=== PATIENT | female | born 1950 | race Caucasian/White ===

== ENCOUNTER → 2016-10-10 | Outpatient (CLI) | payer OTHER ==
[~2016-10-10] MED LIST: ASPIRIN81 M1 PO; CAPOTEN25 MG PO; CAPTOPRIL25 MG PO; CARAFATE1 GM PO; CATAPRES0.2 M1 PO; CIPRO500 MG PO; CLONIDINE HCL0.1 MG PO; COLACE100 MG PO; COREG12.5 M1 PO; COREG25 MG PO; CYMBALTA30 MG PO; CYMBALTA60 MG PO; DOXYCYCLINE100 M3 PO; DULCOLAX STOOL100 MG PO; FAMOTIDINE20 MG PO; FLEXERIL10 MG PO; GLUCOPHAGE1000 MG PO; GLUCOPHAGE500 MG PO; GLUCOTROL5 MG PO; HUMALOG100 U/ML SC; HUMULIN 70/30 703 M1 SC; HYDR25T PO; HYDRALAZINE HYD50 MG PO; JANUVIA100 MG PO; LAMICTAL100 MG PO; LAMICTAL200 MG PO; LANTUS100 U/ML SC; LIPITOR40 MG PO; LOPID600 M1 PO; Lovenox40 MG/0.4 SC; MECLIZINE HCL25 M2 PO; METFORMIN1000 MG PO; MICARDIS80 MG PO; MORPHINE SULF2 MG/M1 IV; MULTIPLE VITAMI1 CTB PO; NAPROSYN375 MG PO; NEXIUM40 MG PO; NORCO 10-325 T1 EACH PO; NORCO 325 MG-51 TAB PO; NORCO 325 MG-7.1 TAB PO; NORVASC10 MG PO; NOVOLIN 701 UNIT/0.0 PO; NOVOLOG 70/30 M10 ML SC; OXCARBAZEPINE150 MG PO; PENTOXIFYL XR400 MG PO; PEPCID AC10 MG PO; PEPCID20 MG PO; PERCOCET 325 MG1 TA2 PO; PRAVACHOL80 M1 PO; TRENTAL; TRILEPTAL300 MG PO; TYLENOL W/CODEI1 TA2 PO; VANCOCIN1000 MG/25 IV; VANCOMYCIN1 GM/250 M IV; VANCOMYCIN1.25 GM/25 IV; VICODIN 5/500 505 MG PO; VITAMIN D32000 I1 PO; VITAMIN D5000 I3 PO; Vicodin 5/500 505 MG PO; ZETIA10 MG PO; ZOLOFT100 MG PO; ZOSYN 3.373.375 GM/5 IV; Zestril,Prinivi40 MG PO
[2016-10-10 14:11] LABS: BASO # 0.1 10*3/uL (0.0-0.1); BASO % 0.6 % (0.0-1.0); EOS # 0.2 10*3/uL (0.0-0.4); EOS % 1.8 % (1.0-4.0); HEMATOCRIT 37.4 % (37.0-47.0); IG # 0.1 10*3/uL (0.0-0.1); LYMPH # 1.9 10*3/uL (1.3-4.4); LYMPH % 19.9 % (27.0-41.0); MEAN CELL VOLUME 90.8 fl (81.0-99.0); MEAN CORPUSCULAR HGB 29.1 pg (27.0-31.0); MEAN CORPUSCULAR HGB CONC 32.1 g/dl (33.0-37.0); MEAN PLATELET VOLUME 10.3 fl (9.6-12.3); MONO # 0.8 10*3/uL (0.1-1.0); MONO % 8.2 % (3.0-9.0); NEUT # 6.6 10*3/uL (2.3-7.9); PLATELET COUNT AUTOMATED 273 10*3/uL (130-400); RED BLOOD COUNT 4.12 10*6/uL (4.10-5.10); RED CELL DISTRI WIDTH 13.8 % (0-14.5); WHITE BLOOD COUNT 9.6 10*3/uL (4.8-10.8)
[2016-10-10 14:33] LABS: ALBUMIN 3.2 gm/dl (3.1-4.5); BILIRUBIN, TOTAL 0.3 mg/dl (0.2-1.0); C-REACTIVE PROTEIN 4.79 MG/DL (0-0.3); POTASSIUM 4.7 mmol/L (3.5-5.1); TOTAL PROTEIN 7.2 gm/dL (6.4-8.2)
== END | disposition home or self-care (01) ==
LOC: LAB 13:21
PROVIDERS: Podiatrist
DX: L08.9 Local infection of the skin and subcutaneous tissue, unspecified (principal)

== ENCOUNTER → 2017-06-21 | Outpatient (CLI) | payer OTHER ==
[2017-06-21 09:11] LABS: HEMATOCRIT 39.1 % (37.0-47.0); HEMOGLOBIN 12.5 g/dl (12.0-16.0); MEAN CELL VOLUME 87.7 fl (81.0-99.0); RED BLOOD COUNT 4.46 10*6/uL (4.10-5.10); RED CELL DISTRI WIDTH 14.2 % (0-14.5); WHITE BLOOD COUNT 7.5 10*3/uL (4.8-10.8)
[2017-06-21 09:21] LABS: ALBUMIN 3.4 gm/dl (3.1-4.5); CREATININE 1.37 mg/dL (0.55-1.02); POTASSIUM 4.8 mmol/L (3.5-5.1); TOTAL PROTEIN 7.9 gm/dL (6.4-8.2)
[2017-06-21 09:28] LABS: THYROID STIM HORMONE (HS) 0.662 uIU/ml (0.358-4.75)
== END | disposition home or self-care (01) ==
LOC: US 06-19 07:30 → LAB 08:16 → US 08:30
DX: E11.9 Type 2 diabetes mellitus without complications (principal); E55.9 Vitamin D deficiency, unspecified; I10 Essential (primary) hypertension

== ENCOUNTER → 2017-10-31 | Outpatient (CLI) | payer OTHER | END | disposition home or self-care (01) | LOC: MRI 10:56 | DX: G50.0 Trigeminal neuralgia (principal) ==

== ENCOUNTER → 2018-02-27 | Outpatient (CLI) | payer OTHER | END | disposition home or self-care (01) | LOC: RESCLI 04:37 | DX: I11.0 Hypertensive heart disease with heart failure (principal); I50.9 Heart failure, unspecified; E11.59 Type 2 diabetes mellitus with other circulatory complications; I73.9 Peripheral vascular disease, unspecified; K21.9 Gastro-esophageal reflux disease without esophagitis; E78.5 Hyperlipidemia, unspecified; F41.9 Anxiety disorder, unspecified; E55.9 Vitamin D deficiency, unspecified; F33.9 Major depressive disorder, recurrent, unspecified; G50.0 Trigeminal neuralgia; G40.909 Epilepsy, unspecified, not intractable, without status epilepticus; R05 Cough; R42 Dizziness and giddiness; Z79.4 Long term (current) use of insulin; Z90.49 Acquired absence of other specified parts of digestive tract; Z88.1 Allergy status to other antibiotic agents ==

== ENCOUNTER → 2018-05-24 | Outpatient (CLI) | payer OTHER | END | disposition home or self-care (01) | LOC: RESCLI 02:26 | DX: E11.59 Type 2 diabetes mellitus with other circulatory complications (principal); G43.009 Migraine without aura, not intractable, without status migrainosus; K21.9 Gastro-esophageal reflux disease without esophagitis; E78.00 Pure hypercholesterolemia, unspecified; E55.9 Vitamin D deficiency, unspecified; J44.9 Chronic obstructive pulmonary disease, unspecified; E66.01 Morbid (severe) obesity due to excess calories; G40.909 Epilepsy, unspecified, not intractable, without status epilepticus; G50.0 Trigeminal neuralgia; F41.9 Anxiety disorder, unspecified; I73.9 Peripheral vascular disease, unspecified; Z90.49 Acquired absence of other specified parts of digestive tract; Z79.899 Other long term (current) drug therapy ==

== ENCOUNTER → 2018-09-14 | Outpatient (CLI) | payer OTHER | END | disposition home or self-care (01) | LOC: RESCLI 13:36 | DX: Z76.0 Encounter for issue of repeat prescription (principal); E11.9 Type 2 diabetes mellitus without complications; I11.0 Hypertensive heart disease with heart failure; I50.9 Heart failure, unspecified; E78.5 Hyperlipidemia, unspecified; K21.9 Gastro-esophageal reflux disease without esophagitis; E66.9 Obesity, unspecified; Z90.49 Acquired absence of other specified parts of digestive tract; Z88.8 Allergy status to other drugs, medicaments and biological substances; Z79.82 Long term (current) use of aspirin; Z79.899 Other long term (current) drug therapy; Z79.84 Long term (current) use of oral hypoglycemic drugs ==

== ENCOUNTER → 2018-11-27 | Outpatient (CLI) | payer OTHER | END | disposition home or self-care (01) | LOC: RESCLI 04:27 | DX: Z12.11 Encounter for screening for malignant neoplasm of colon (principal); I11.0 Hypertensive heart disease with heart failure; I50.9 Heart failure, unspecified; B37.2 Candidiasis of skin and nail; R42 Dizziness and giddiness; G43.909 Migraine, unspecified, not intractable, without status migrainosus; F32.9 Major depressive disorder, single episode, unspecified; G40.909 Epilepsy, unspecified, not intractable, without status epilepticus; G50.0 Trigeminal neuralgia; E11.622 Type 2 diabetes mellitus with other skin ulcer; E11.51 Type 2 diabetes mellitus with diabetic peripheral angiopathy without gangrene; E55.9 Vitamin D deficiency, unspecified; E78.5 Hyperlipidemia, unspecified; K21.9 Gastro-esophageal reflux disease without esophagitis; E66.01 Morbid (severe) obesity due to excess calories; Z79.4 Long term (current) use of insulin; Z79.899 Other long term (current) drug therapy ==

== ENCOUNTER → 2018-12-26 | Outpatient (CLI) | payer OTHER | END | disposition home or self-care (01) | LOC: RESCLI 01:52 | DX: Z12.11 Encounter for screening for malignant neoplasm of colon (principal); I12.9 Hypertensive chronic kidney disease with stage 1 through stage 4 chronic kidney disease, or unspecified chronic kidney disease; E11.22 Type 2 diabetes mellitus with diabetic chronic kidney disease; E11.622 Type 2 diabetes mellitus with other skin ulcer; E11.51 Type 2 diabetes mellitus with diabetic peripheral angiopathy without gangrene; N18.3 Chronic kidney disease, stage 3 (moderate); B37.2 Candidiasis of skin and nail; R42 Dizziness and giddiness; G43.909 Migraine, unspecified, not intractable, without status migrainosus; F32.9 Major depressive disorder, single episode, unspecified; G40.909 Epilepsy, unspecified, not intractable, without status epilepticus; G50.0 Trigeminal neuralgia; E55.9 Vitamin D deficiency, unspecified; E78.5 Hyperlipidemia, unspecified; K21.9 Gastro-esophageal reflux disease without esophagitis; J44.9 Chronic obstructive pulmonary disease, unspecified; E66.01 Morbid (severe) obesity due to excess calories; Z79.4 Long term (current) use of insulin; Z79.899 Other long term (current) drug therapy; Z79.82 Long term (current) use of aspirin; Z90.49 Acquired absence of other specified parts of digestive tract; Z88.8 Allergy status to other drugs, medicaments and biological substances; Z91.048 Other nonmedicinal substance allergy status ==

== ENCOUNTER → 2019-02-06 | Outpatient (CLI) | payer OTHER ==
[2019-02-06 11:04] LABS: BASO # 0.1 10*3/uL (0.0-0.1); BASO % 0.8 % (0.0-1.0); EOS # 0.5 10*3/uL (0.0-0.4); EOS % 5.9 % (1.0-4.0); HEMATOCRIT 37.6 % (37.0-47.0); HEMOGLOBIN 12.3 g/dl (12.0-16.0); LYMPH % 26.7 % (27.0-41.0); MEAN CELL VOLUME 89.3 fl (81.0-99.0); MEAN CORPUSCULAR HGB 29.2 pg (27.0-31.0); MEAN CORPUSCULAR HGB CONC 32.7 g/dl (33.0-37.0); MEAN PLATELET VOLUME 9.6 fl (9.6-12.3); MONO # 0.5 10*3/uL (0.1-1.0); MONO % 6.4 % (3.0-9.0); NEUT # 4.5 10*3/uL (2.3-7.9); NEUT % 59.3 % (47.0-73.0); PLATELET COUNT AUTOMATED 255 10*3/uL (130-400); RED BLOOD COUNT 4.21 10*6/uL (4.10-5.10); RED CELL DISTRI WIDTH 14.1 % (0-14.5); WHITE BLOOD COUNT 7.6 10*3/uL (4.8-10.8)
[2019-02-06 11:34] LABS: CREATININE 1.58 mg/dL (0.55-1.02)
[2019-02-06 11:43] LABS: TOTAL PROTEIN 7.8 gm/dL (6.4-8.2)
== END | disposition home or self-care (01) ==
LOC: LAB 10:28
PROVIDERS: Psychiatry & Neurology Neurology
DX: G50.0 Trigeminal neuralgia (principal); Z79.899 Other long term (current) drug therapy

== ENCOUNTER → 2019-05-31 | Outpatient (CLI) | payer OTHER | END | disposition home or self-care (01) | LOC: CARD 09:30 | DX: R06.02 Shortness of breath (principal) ==

== ENCOUNTER → 2019-06-10 | Outpatient (CLI) | payer OTHER ==
--- NOTE | 2019-06-10 10:49 | NUR ---
INFORMED CONSNET SIGNED FOR LEXISCAN STRESS TEST WITH DR. GALICIA. RESTING EKG NSR, HR 79, BP 144/78. PULSE OX 96% AND LUNGS CLEAR. COMPLETED ONE MINUTE OF LEXISCAN PROTOCOL RECEIVING LEXISCAN 0.4MG OVER 10 SECONDS. NO ARRHYTHMIAS OR ST CHANGES NOTED. PT C/O WEIRD FEELING. LAST RECOVERY HR 87, BP 148/70. WAITING NUCLEAR SCANNING IN STABLE CONDITION.
== END | disposition home or self-care (01) ==
LOC: CARD 01:06
DX: R06.02 Shortness of breath (principal); R53.81 Other malaise

== ENCOUNTER → 2019-08-02 | Outpatient (CLI) | payer OTHER ==
[2019-08-02 14:50] LABS: CREATININE 1.51 mg/dL (0.55-1.02); POTASSIUM 4.8 mmol/L (3.5-5.1)
== END | disposition home or self-care (01) ==
LOC: LAB 13:10
PROVIDERS: Internal Medicine Cardiovascular Disease
DX: I13.0 Hypertensive heart and chronic kidney disease with heart failure and stage 1 through stage 4 chronic kidney disease, or unspecified chronic kidney disease (principal); N18.3 Chronic kidney disease, stage 3 (moderate); I50.33 Acute on chronic diastolic (congestive) heart failure

== ENCOUNTER → 2019-08-19 | Outpatient (CLI) | payer OTHER | END | disposition home or self-care (01) | LOC: CARD 11:22 | DX: R06.02 Shortness of breath (principal); I50.33 Acute on chronic diastolic (congestive) heart failure; I51.7 Cardiomegaly ==

== ENCOUNTER → 2020-05-04 | Outpatient (CLI) | payer OTHER | END | disposition home or self-care (01) | LOC: RAD 16:38 | DX: I51.7 Cardiomegaly (principal); E83.52 Hypercalcemia ==

== ENCOUNTER → 2020-05-28 | Outpatient (CLI) | payer OTHER | END | disposition home or self-care (01) | LOC: CARD 14:59 | PROVIDERS: ATTEND Physician Assistant | DX: I51.7 Cardiomegaly (principal) ==

== ENCOUNTER 2020-10-01 12:23 | Emergency (ER) | payer OTHER ==
[~2020-10-01] VITALS: Ht 152.4 cm; Wt 95.3 kg
[2020-10-01 13:13] LABS: BASO # 0.1 10*3/uL (0.0-0.1); BASO % 0.5 % (0.0-1.0); EOS # 0.1 10*3/uL (0.0-0.4); EOS % 0.6 % (1.0-4.0); HEMATOCRIT 42.3 % (37.0-47.0); LYMPH # 1.1 10*3/uL (1.3-4.4); LYMPH % 11.5 % (27.0-41.0); MEAN CELL VOLUME 85.3 fl (81.0-99.0); MEAN CORPUSCULAR HGB CONC 32.9 g/dl (33.0-37.0); MONO # 0.5 10*3/uL (0.1-1.0); NEUT # 8.1 10*3/uL (2.3-7.9); NEUT % 81.8 % (47.0-73.0); PLATELET COUNT AUTOMATED 235 10*3/uL (130-400); RED BLOOD COUNT 4.96 10*6/uL (4.10-5.10); RED CELL DISTRI WIDTH 13.3 % (0-14.5); WHITE BLOOD COUNT 9.9 10*3/uL (4.8-10.8)
[2020-10-01 13:24] LABS: ACT PARTIAL THROMBO TIME 27.2 SECONDS (20.0-32.1)
[2020-10-01 13:27] LABS: ALBUMIN 3.7 gm/dl (3.1-4.5); ALKALINE PHOSPHATASE 298 U/L (45-117); BUN 21 mg/dl (7-24); CHLORIDE 103 mmol/L (98-107); CPK 47 U/L (26-192); CREATININE 1.33 mg/dL (0.55-1.02); LIPASE 185 U/L (73-393); POTASSIUM 4.6 mmol/L (3.5-5.1); SGOT/AST 26 IU/L (3-35); SGPT/ALT 39 U/L (12-78); SODIUM 134 mmol/L (136-145); TOTAL PROTEIN 7.7 gm/dL (6.4-8.2)
[2020-10-01 13:30] LABS: TROPONIN I < 0.015 ng/ml (<0.045)
[2020-10-01 14:28] LABS: BILIRUBIN Negative (Negative); BLOOD Trace-Lysed (Negative); CLARITY Clear (Clear); COLOR Yellow (Yellow); GLUCOSE 3+ (Negative); KETONE 1+ (Negative); LEUKO ESTERASE Negative (Negative); NITRITE Negative (Negative); UROBILINOGEN 0.2 E.U./dl (0.0-1.0)
[2020-10-01 14:37] LABS: BACTERIA TRACE; EPITHELIAL CELLS 0-2; RBC 0-2 rbc/hpf (0-2); WBC 0-2 wbc/hpf (0-5)
[2020-10-01] MEDS ORDERED: REGLAN10 M1 PO (18:48)
[2020-10-01] MEDS ORDERED: NORCO 5-325 TA1 EACH PO (18:48)
== END 2020-10-01 19:56 | disposition home or self-care (01) ==
LOC: ED 12:23
PROVIDERS: Emergency Medicine
DX: N13.2 Hydronephrosis with renal and ureteral calculous obstruction (principal); N13.4 Hydroureter; E11.65 Type 2 diabetes mellitus with hyperglycemia; E78.5 Hyperlipidemia, unspecified; R79.1 Abnormal coagulation profile; K21.9 Gastro-esophageal reflux disease without esophagitis; Z88.1 Allergy status to other antibiotic agents; Z88.8 Allergy status to other drugs, medicaments and biological substances; Z79.899 Other long term (current) drug therapy; Z79.82 Long term (current) use of aspirin; Z79.4 Long term (current) use of insulin

== ENCOUNTER → 2021-04-01 | Outpatient (CLI) | payer OTHER ==
[~2021-04-01] MED LIST changes: +NORCO 5-325 TA1 EACH PO; +REGLAN10 M1 PO
== END | disposition home or self-care (01) ==
LOC: US 03-31 10:30 → CARD 03-31 11:30 → US 14:00
PROVIDERS: ATTEND Physician Assistant
DX: I65.23 Occlusion and stenosis of bilateral carotid arteries (principal); E04.2 Nontoxic multinodular goiter; R55 Syncope and collapse

== ENCOUNTER → 2021-04-02 | Outpatient (CLI) | payer OTHER ==
[~2021-04-02] MED LIST changes: +AMITRIPTYLINE10 MG PO; +AVAPRO75 MG PO; +DOXYCYCLINE HY100 M3 PO; +EFFEXOR XR150 M1 PO; +HYDROCODONE-AC1 EAC1 PO; +JARDIANCE25 MG PO; +KLONOPIN0.5 MG PO; +KLOR-CON 1010 ME1 PO; +LASIX20 MG PO; +MOBIC7.5 MG PO; +OMEPRAZOLE20 M2 PO; +VENT7GM INH
== END | disposition home or self-care (01) ==
LOC: CARD 03-31 11:30
PROVIDERS: ATTEND Physician Assistant
DX: I49.3 Ventricular premature depolarization (principal)

== ENCOUNTER → 2021-05-20 | Outpatient (CLI) | payer OTHER | END | disposition home or self-care (01) | LOC: US 14:30 | PROVIDERS: ATTEND Physician Assistant | DX: E04.2 Nontoxic multinodular goiter (principal) ==

== ENCOUNTER → 2022-01-05 | Outpatient (CLI) | payer OTHER ==
[~2022-01-05] MED LIST changes: +ASPIRIN ADULT L81 M2 PO; +BACLOFEN5 MG PO; +CENTRUM CHEWAB1 EAC2 PO; +CLONIDINE0.2 MG PO; +EXCEDRIN MIGRA1 EAC1 PO; +GLIPIZIDE5 MG PO; +IMDUR SA30 MG PO; +INDOMETHACIN50 MG PO; +METFORMIN HYD1000 MG PO; +METOPROLOL SUCC50 M1 PO; +Meclizine25 MG PO; +NOVOLOG MI100 UNIT/1 SQ; +PEPCID40 MG PO; +POTASSIUM CHLO20 ME3 PO; +PROVENTIL HFA6.7 GM INH; +VITAMIN D3125 MC1 PO; +[UNRECOGNIZED DRUG - REMARK]
[2022-01-05 13:29] LABS: MEAN CELL VOLUME 86.1 fl (81.0-99.0); MEAN CORPUSCULAR HGB 28.7 pg (27.0-31.0); MEAN CORPUSCULAR HGB CONC 33.3 g/dl (33.0-37.0); MEAN PLATELET VOLUME 10.2 fl (9.6-12.3); RED BLOOD COUNT 4.88 10*6/uL (4.10-5.10); RED CELL DISTRI WIDTH 13.5 % (0-14.5); WHITE BLOOD COUNT 6.6 10*3/uL (4.8-10.8)
[2022-01-05 13:40] LABS: CREATININE 1.2 mg/dL (0.55-1.02); POTASSIUM 4.2 mmol/L (3.5-5.1)
== END | disposition home or self-care (01) ==
LOC: LAB 12:50
PROVIDERS: ATTEND Physician Assistant
DX: Z01.818 Encounter for other preprocedural examination (principal); I13.0 Hypertensive heart and chronic kidney disease with heart failure and stage 1 through stage 4 chronic kidney disease, or unspecified chronic kidney disease; E11.22 Type 2 diabetes mellitus with diabetic chronic kidney disease; N18.30 Chronic kidney disease, stage 3 unspecified

== ENCOUNTER → 2022-03-21 | Outpatient (CLI) | payer OTHER | END | disposition home or self-care (01) | LOC: CARD 03-17 09:00 | PROVIDERS: ATTEND Physician Assistant | DX: I10 Essential (primary) hypertension (principal); E11.9 Type 2 diabetes mellitus without complications; G50.0 Trigeminal neuralgia; R00.2 Palpitations ==

== ENCOUNTER 2022-05-08 13:29 | Inpatient (IN) | payer OTHER ==
[~2022-05-08] VITALS: Ht 152.4 cm; Wt 82.3 kg
[2022-05-08 13:48] VITALS: BP 166/75
[2022-05-08] MEDS ORDERED: EXCEDRIN EXTRA1 EACH PO (14:24)
[2022-05-08] MEDS ORDERED: Hydralazine Hyd25 MG PO (14:25)
[2022-05-08] MEDS ORDERED: LOMOTIL 2.5-0.1 EACH PO (14:31)
[2022-05-08] MEDS ORDERED: ONDANSETRON HYDR4 MG PO (14:31)
[2022-05-08 14:36] LABS: BASO # 0.1 10*3/uL (0.0-0.1); BASO % 0.6 % (0.0-1.0); EOS % 0.2 % (1.0-4.0); HEMATOCRIT 45.8 % (37.0-47.0); LYMPH # 2.4 10*3/uL (1.3-4.4); MEAN CELL VOLUME 85.8 fl (81.0-99.0); MEAN CORPUSCULAR HGB 29.2 pg (27.0-31.0); MEAN CORPUSCULAR HGB CONC 34.1 g/dl (33.0-37.0); MEAN PLATELET VOLUME 10.6 fl (9.6-12.3); MONO # 0.8 10*3/uL (0.1-1.0); MONO % 6.5 % (3.0-9.0); NEUT # 8.6 10*3/uL (2.3-7.9); NEUT % 71.6 % (47.0-73.0); PLATELET COUNT AUTOMATED 248 10*3/uL (130-400); RED BLOOD COUNT 5.34 10*6/uL (4.10-5.10); RED CELL DISTRI WIDTH 13.6 % (0-14.5)
[2022-05-08 14:47] LABS: ACT PARTIAL THROMBO TIME 30.5 SECONDS (20.0-32.1); INTERNATIONAL NORM RATIO 1.1 (2.0-3.5)
[2022-05-08 14:55] LABS: CREATININE 1.39 mg/dL (0.55-1.02); POTASSIUM 3.8 mmol/L (3.5-5.1); TOTAL PROTEIN 7.2 gm/dL (6.4-8.2)
[2022-05-08 15:14] LABS: BILIRUBIN Negative (Negative); BLOOD Negative (Negative); CLARITY Clear (Clear); COLOR Yellow (Yellow); GLUCOSE 3+ (Negative); KETONE 1+ (Negative); LEUKO ESTERASE Negative (Negative); NITRITE Negative (Negative); PH 5.5 (4.5-8.0); SPECIFIC GRAVITY >= 1.030 (1.001-1.030); UROBILINOGEN 0.2 E.U./dl (0.0-1.0)
[2022-05-08 15:36] LABS: BACTERIA 1+; EPITHELIAL CELLS 21-30; RBC 0-2 rbc/hpf (0-2); WBC 21-30 wbc/hpf (0-5)
[2022-05-08 18:05] VITALS: BP 147/66
[2022-05-08 22:50] VITALS: BP 144/60
[2022-05-09] VITALS (9 sets, daily range): BP systolic 95–189; BP diastolic 55–88
[2022-05-09 06:39] LABS: ALKALINE PHOSPHATASE 188 U/L (45-117); CHLORIDE 108 mmol/L (98-107); CHOLESTEROL 79 mg/dL (<200); CREATININE 1.03 mg/dL (0.55-1.02); FREE T4 1.38 ng/dl (0.76-1.46); LDL CHOLESTEROL 10 mg/dL (9-159); POTASSIUM 4.1 mmol/L (3.5-5.1); SGOT/AST 23 IU/L (3-35); SGPT/ALT 18 U/L (12-78); SODIUM 138 mmol/L (136-145); TOTAL PROTEIN 6.4 gm/dL (6.4-8.2); TRIGLYCERIDES 85 mg/dl (<150)
[2022-05-09 06:44] LABS: THYROID STIM HORMONE (HS) 0.172 uIU/ml (0.358-4.75)
[2022-05-09 06:45] LABS: BASO # 0.1 10*3/uL (0.0-0.1); EOS # 0.2 10*3/uL (0.0-0.4); EOS % 1.8 % (1.0-4.0); HEMATOCRIT 44.1 % (37.0-47.0); LYMPH # 2.7 10*3/uL (1.3-4.4); LYMPH % 30.5 % (27.0-41.0); MEAN CELL VOLUME 85.5 fl (81.0-99.0); MEAN CORPUSCULAR HGB 28.7 pg (27.0-31.0); MEAN CORPUSCULAR HGB CONC 33.6 g/dl (33.0-37.0); MEAN PLATELET VOLUME 10.6 fl (9.6-12.3); MONO # 0.6 10*3/uL (0.1-1.0); MONO % 7.2 % (3.0-9.0); NEUT # 5.2 10*3/uL (2.3-7.9); NEUT % 58.8 % (47.0-73.0); PLATELET COUNT AUTOMATED 202 10*3/uL (130-400); RED BLOOD COUNT 5.16 10*6/uL (4.10-5.10); RED CELL DISTRI WIDTH 13.5 % (0-14.5); WHITE BLOOD COUNT 8.8 10*3/uL (4.8-10.8)
[2022-05-09 06:50] LABS: BUN 20 mg/dl (7-24)
[2022-05-10] VITALS: BP 113/51
[2022-05-10 06:03] LABS: BUN 14 mg/dl (7-24); CHLORIDE 112 mmol/L (98-107); CREATININE 0.96 mg/dL (0.55-1.02); POTASSIUM 4.5 mmol/L (3.5-5.1); SODIUM 139 mmol/L (136-145)
[2022-05-10 06:08] LABS: BASO # 0.1 10*3/uL (0.0-0.1); BASO % 1.1 % (0.0-1.0); EOS # 0.4 10*3/uL (0.0-0.4); LYMPH # 4.2 10*3/uL (1.3-4.4); LYMPH % 49.6 % (27.0-41.0); MEAN CELL VOLUME 86.7 fl (81.0-99.0); MEAN CORPUSCULAR HGB CONC 33.4 g/dl (33.0-37.0); MEAN PLATELET VOLUME 10.7 fl (9.6-12.3); MONO # 0.6 10*3/uL (0.1-1.0); NEUT # 3.1 10*3/uL (2.3-7.9); NEUT % 36.8 % (47.0-73.0); PLATELET COUNT AUTOMATED 195 10*3/uL (130-400); RED BLOOD COUNT 4.73 10*6/uL (4.10-5.10); RED CELL DISTRI WIDTH 13.6 % (0-14.5); WHITE BLOOD COUNT 8.5 10*3/uL (4.8-10.8)
[2022-05-10 08:00] VITALS: BP 157/72
[2022-05-10 12:00] VITALS: BP 133/69
[2022-05-10 16:00] VITALS: BP 141/73
[2022-05-10 20:00] VITALS: BP 116/48
[2022-05-11] VITALS: BP 137/56
[2022-05-11 06:30] LABS: BUN 12 mg/dl (7-24); CHLORIDE 113 mmol/L (98-107); CREATININE 0.99 mg/dL (0.55-1.02); POTASSIUM 4.7 mmol/L (3.5-5.1); SODIUM 143 mmol/L (136-145)
[2022-05-11 08:00] VITALS: BP 153/78
[2022-05-11 12:00] VITALS: BP 155/59
[2022-05-11] MEDS ORDERED: HYDRALAZINE HYD50 MG PO (12:12)
[2022-05-11] MEDS ORDERED: Carafate1 GM PO (12:12)
[2022-05-11] MEDS ORDERED: NYAMYC15 GM T (12:12)
[2022-05-11] MEDS ORDERED: PROTONIX40 MG PO (12:12)
[2022-05-11] MEDS ORDERED: LEVOFLOXACIN750 M2 PO (12:14)
== END 2022-05-11 17:11 | disposition home or self-care (01) | DRG 871 ==
LOC: ED 13:29 → EDHOLD 16:40 → 4E 16:40
PROVIDERS: Family Medicine; Internal Medicine; Student in an Organized Health Care Education/Training Program; ADMIT Internal Medicine; ATTEND Internal Medicine
PROC: 0DJ08ZZ Inspection of Upper Intestinal Tract, Via Natural or Artificial Opening Endoscopic (ICD-10-PCS; principal; 2022-05-09)
DX: A41.9 Sepsis, unspecified organism (principal); K25.4 Chronic or unspecified gastric ulcer with hemorrhage; N17.0 Acute kidney failure with tubular necrosis; N30.00 Acute cystitis without hematuria; E87.1 Hypo-osmolality and hyponatremia; F41.9 Anxiety disorder, unspecified; R55 Syncope and collapse; E83.42 Hypomagnesemia; E11.65 Type 2 diabetes mellitus with hyperglycemia; F32.A Depression, unspecified; E86.0 Dehydration; K21.9 Gastro-esophageal reflux disease without esophagitis; G25.81 Restless legs syndrome; I10 Essential (primary) hypertension; E78.1 Pure hyperglyceridemia; Z79.4 Long term (current) use of insulin; Z79.899 Other long term (current) drug therapy; Z90.49 Acquired absence of other specified parts of digestive tract; Z88.8 Allergy status to other drugs, medicaments and biological substances; W19.XXXA Unspecified fall, initial encounter

== ENCOUNTER → 2022-06-11 | Outpatient (CLI) | payer OTHER ==
[~2022-06-11] MED LIST changes: +Carafate1 GM PO; +EXCEDRIN EXTRA1 EACH PO; +Hydralazine Hyd25 MG PO; +LEVOFLOXACIN750 M2 PO; +LOMOTIL 2.5-0.1 EACH PO; +NYAMYC15 GM T; +ONDANSETRON HYDR4 MG PO; +PROTONIX40 MG PO
== END | disposition home or self-care (01) ==
LOC: US 10:17
PROVIDERS: ATTEND Physician Assistant
DX: E04.1 Nontoxic single thyroid nodule (principal)

== ENCOUNTER 2022-07-12 16:07 | Inpatient (IN) | payer OTHER ==
[~2022-07-12] VITALS: Ht 152.4 cm; Wt 77.6 kg
[2022-07-12 16:15] VITALS: BP 131/71
[2022-07-12 16:44] LABS: BASO # 0.1 10*3/uL (0.0-0.1); BASO % 0.9 % (0.0-1.0); EOS # 0.2 10*3/uL (0.0-0.4); EOS % 2.6 % (1.0-4.0); HEMATOCRIT 42.7 % (37.0-47.0); LYMPH # 1.6 10*3/uL (1.3-4.4); LYMPH % 23.6 % (27.0-41.0); MEAN CELL VOLUME 86.1 fl (81.0-99.0); MEAN CORPUSCULAR HGB 28.8 pg (27.0-31.0); MEAN CORPUSCULAR HGB CONC 33.5 g/dl (33.0-37.0); MEAN PLATELET VOLUME 11.4 fl (9.6-12.3); MONO # 0.7 10*3/uL (0.1-1.0); MONO % 9.3 % (3.0-9.0); NEUT # 4.4 10*3/uL (2.3-7.9); NEUT % 63.3 % (47.0-73.0); PLATELET COUNT AUTOMATED 226 10*3/uL (130-400); RED BLOOD COUNT 4.96 10*6/uL (4.10-5.10); RED CELL DISTRI WIDTH 13.5 % (0-14.5)
[2022-07-12 17:05] LABS: CREATININE 3.71 mg/dL (0.55-1.02); POTASSIUM 4.3 mmol/L (3.5-5.1); TOTAL PROTEIN 8.6 gm/dL (6.4-8.2)
[2022-07-12 17:38] LABS: BILIRUBIN Negative (Negative); BLOOD Negative (Negative); CLARITY Clear (Clear); COLOR Yellow (Yellow); GLUCOSE 3+ (Negative); KETONE Negative (Negative); LEUKO ESTERASE 2+ (Negative); NITRITE Negative (Negative); UROBILINOGEN 0.2 E.U./dl (0.0-1.0)
[2022-07-12 18:04] LABS: BACTERIA 2+; EPITHELIAL CELLS TNTC; HYALINE CAST 0-2; RBC 0-2 rbc/hpf (0-2); WBC 41-50 wbc/hpf (0-5)
[2022-07-12 18:05] LABS: YEAST TRACE
[2022-07-12 18:39] VITALS: BP 181/83
[2022-07-12 20:15] VITALS: BP 171/91
[2022-07-12 21:30] VITALS: BP 179/90
[2022-07-12 23:00] VITALS: BP 136/64
[2022-07-13 02:05] VITALS: BP 157/85
[2022-07-13 02:33] LABS: BILIRUBIN Negative (Negative); BLOOD Negative (Negative); CLARITY Clear (Clear); COLOR Yellow (Yellow); GLUCOSE 3+ (Negative); KETONE Negative (Negative); LEUKO ESTERASE 1+ (Negative); NITRITE Negative (Negative); PH 5.5 (4.5-8.0); UROBILINOGEN 0.2 E.U./dl (0.0-1.0)
[2022-07-13 02:46] LABS: BACTERIA 1+; RBC 0-2 rbc/hpf (0-2)
[2022-07-13] MEDS ORDERED: DEXAMETHASONE/NE5 M1 OPH (02:54)
[2022-07-13 06:40] LABS: BASO # 0.1 10*3/uL (0.0-0.1); BASO % 0.9 % (0.0-1.0); EOS # 0.1 10*3/uL (0.0-0.4); EOS % 1.7 % (1.0-4.0); HEMATOCRIT 36.2 % (37.0-47.0); LYMPH # 1.3 10*3/uL (1.3-4.4); LYMPH % 22.3 % (27.0-41.0); MEAN CELL VOLUME 88.1 fl (81.0-99.0); MEAN CORPUSCULAR HGB 29.2 pg (27.0-31.0); MEAN CORPUSCULAR HGB CONC 33.1 g/dl (33.0-37.0); MEAN PLATELET VOLUME 11.6 fl (9.6-12.3); MONO # 0.5 10*3/uL (0.1-1.0); MONO % 8.6 % (3.0-9.0); NEUT # 3.8 10*3/uL (2.3-7.9); NEUT % 66.3 % (47.0-73.0); PLATELET COUNT AUTOMATED 178 10*3/uL (130-400); RED BLOOD COUNT 4.11 10*6/uL (4.10-5.10); RED CELL DISTRI WIDTH 13.3 % (0-14.5); WHITE BLOOD COUNT 5.7 10*3/uL (4.8-10.8)
[2022-07-13 06:41] LABS: CREATININE 2.23 mg/dL (0.55-1.02); POTASSIUM 4.8 mmol/L (3.5-5.1)
[2022-07-13 06:46] LABS: FREE T4 1.14 ng/dl (0.76-1.46); THYROID STIM HORMONE (HS) 0.263 uIU/ml (0.358-4.75)
[2022-07-13 08:00] VITALS: BP 176/77
[2022-07-13] MEDS ORDERED: NYST SUSP PO (10:34)
[2022-07-13] MEDS ORDERED: CHLORHEXIDINE473 M1 PO (10:36)
[2022-07-13] MEDS ORDERED: PAROXETINE10 MG PO (10:45)
[2022-07-13 12:00] VITALS: BP 206/98
[2022-07-13 16:00] VITALS: BP 151/61
[2022-07-13 20:00] VITALS: BP 141/76
[2022-07-14] VITALS: BP 150/64
[2022-07-14 05:34] VITALS: BP 161/73
[2022-07-14 06:42] LABS: BASO % 0.7 % (0.0-1.0); EOS # 0.1 10*3/uL (0.0-0.4); EOS % 1.7 % (1.0-4.0); HEMATOCRIT 35.9 % (37.0-47.0); LYMPH # 1.7 10*3/uL (1.3-4.4); LYMPH % 28.7 % (27.0-41.0); MEAN CELL VOLUME 88.9 fl (81.0-99.0); MEAN CORPUSCULAR HGB 29.2 pg (27.0-31.0); MEAN CORPUSCULAR HGB CONC 32.9 g/dl (33.0-37.0); MEAN PLATELET VOLUME 11.7 fl (9.6-12.3); MONO # 0.5 10*3/uL (0.1-1.0); MONO % 8.1 % (3.0-9.0); NEUT # 3.5 10*3/uL (2.3-7.9); NEUT % 60.5 % (47.0-73.0); PLATELET COUNT AUTOMATED 174 10*3/uL (130-400); RED BLOOD COUNT 4.04 10*6/uL (4.10-5.10); RED CELL DISTRI WIDTH 13.5 % (0-14.5); WHITE BLOOD COUNT 5.8 10*3/uL (4.8-10.8)
[2022-07-14 06:57] LABS: POTASSIUM 4.8 mmol/L (3.5-5.1)
[2022-07-14 06:58] LABS: CREATININE 1.35 mg/dL (0.55-1.02)
[2022-07-14 08:00] VITALS: BP 157/57
[2022-07-14 12:00] VITALS: BP 151/74
[2022-07-14 16:00] VITALS: BP 123/64
[2022-07-14 20:00] VITALS: BP 130/48
[2022-07-15] VITALS: BP 133/58
[2022-07-15 06:30] LABS: BASO # 0.1 10*3/uL (0.0-0.1); EOS # 0.2 10*3/uL (0.0-0.4); EOS % 3.6 % (1.0-4.0); HEMATOCRIT 35.3 % (37.0-47.0); LYMPH # 1.8 10*3/uL (1.3-4.4); LYMPH % 34.5 % (27.0-41.0); MEAN CELL VOLUME 88.9 fl (81.0-99.0); MEAN CORPUSCULAR HGB CONC 32.6 g/dl (33.0-37.0); MEAN PLATELET VOLUME 11.6 fl (9.6-12.3); MONO # 0.5 10*3/uL (0.1-1.0); MONO % 9.3 % (3.0-9.0); NEUT # 2.6 10*3/uL (2.3-7.9); NEUT % 51.2 % (47.0-73.0); PLATELET COUNT AUTOMATED 165 10*3/uL (130-400); RED BLOOD COUNT 3.97 10*6/uL (4.10-5.10); RED CELL DISTRI WIDTH 13.8 % (0-14.5); WHITE BLOOD COUNT 5.1 10*3/uL (4.8-10.8)
[2022-07-15 06:59] LABS: CHLORIDE 121 mmol/L (98-107); CREATININE 1.04 mg/dL (0.55-1.02); POTASSIUM 4.6 mmol/L (3.5-5.1); SODIUM 147 mmol/L (136-145)
[2022-07-15 07:05] LABS: BUN 24 mg/dl (7-24)
[2022-07-15 08:00] VITALS: BP 160/61
[2022-07-15 12:00] VITALS: BP 137/59
[2022-07-15] MEDS ORDERED: DOXYCYCLINE HY100 M3 PO (15:28)
[2022-07-15] MEDS ORDERED: LEVOFLOXACIN750 M2 PO (15:28)
[2022-07-15 15:35] VITALS: BP 133/64
[2022-07-15 20:00] VITALS: BP 157/65
[2022-07-16] VITALS: BP 160/62
[2022-07-16 06:59] LABS: BASO % 0.7 % (0.0-1.0); EOS # 0.1 10*3/uL (0.0-0.4); EOS % 2.4 % (1.0-4.0); HEMATOCRIT 34.9 % (37.0-47.0); LYMPH # 1.5 10*3/uL (1.3-4.4); LYMPH % 28.3 % (27.0-41.0); MEAN CELL VOLUME 89.3 fl (81.0-99.0); MEAN CORPUSCULAR HGB 29.2 pg (27.0-31.0); MEAN CORPUSCULAR HGB CONC 32.7 g/dl (33.0-37.0); MEAN PLATELET VOLUME 11.7 fl (9.6-12.3); MONO # 0.5 10*3/uL (0.1-1.0); MONO % 9.2 % (3.0-9.0); NEUT # 3.2 10*3/uL (2.3-7.9); NEUT % 58.8 % (47.0-73.0); PLATELET COUNT AUTOMATED 151 10*3/uL (130-400); RED BLOOD COUNT 3.91 10*6/uL (4.10-5.10); RED CELL DISTRI WIDTH 13.7 % (0-14.5); WHITE BLOOD COUNT 5.4 10*3/uL (4.8-10.8)
[2022-07-16 07:12] LABS: BUN 17 mg/dl (7-24); CHLORIDE 117 mmol/L (98-107); CREATININE 1.05 mg/dL (0.55-1.02); POTASSIUM 4.1 mmol/L (3.5-5.1); SODIUM 145 mmol/L (136-145)
[2022-07-16 08:00] VITALS: BP 149/61
[2022-07-16 12:00] VITALS: BP 154/60
[2022-07-18 13:06] LABS: ALBUMIN, URINE 30.6 % (.); ALPHA-1-GLOBULIN, URINE 8.5 % (.); GAMMA GLOBULIN, URINE 29.9 % (.); M-SPIKE, % Not Observed % (Not Observed); PROTEIN,TOTAL - URINE RANDOM 4.8 mg/dL (Not Estab.)
== END 2022-07-16 15:30 | disposition home health service (06) | DRG 640 ==
LOC: ED 16:07 → EDHOLD 20:49 → 4E 20:49 → EDHOLD 21:39 → 4E 22:20
PROVIDERS: Internal Medicine; Student in an Organized Health Care Education/Training Program; ADMIT Internal Medicine; ATTEND Internal Medicine
DX: E86.0 Dehydration (principal); N17.0 Acute kidney failure with tubular necrosis; B37.0 Candidal stomatitis; N30.00 Acute cystitis without hematuria; I13.0 Hypertensive heart and chronic kidney disease with heart failure and stage 1 through stage 4 chronic kidney disease, or unspecified chronic kidney disease; N18.32 Chronic kidney disease, stage 3b; K21.9 Gastro-esophageal reflux disease without esophagitis; E88.09 Other disorders of plasma-protein metabolism, not elsewhere classified; E83.52 Hypercalcemia; R73.9 Hyperglycemia, unspecified; I50.9 Heart failure, unspecified; F32.9 Major depressive disorder, single episode, unspecified; R13.10 Dysphagia, unspecified; F19.90 Other psychoactive substance use, unspecified, uncomplicated; R47.1 Dysarthria and anarthria; G25.81 Restless legs syndrome; K29.70 Gastritis, unspecified, without bleeding; Z88.8 Allergy status to other drugs, medicaments and biological substances; Z79.1 Long term (current) use of non-steroidal anti-inflammatories (NSAID); Z80.3 Family history of malignant neoplasm of breast; Z80.42 Family history of malignant neoplasm of prostate; Z80.1 Family history of malignant neoplasm of trachea, bronchus and lung; Z81.8 Family history of other mental and behavioral disorders; Z79.4 Long term (current) use of insulin; Z90.49 Acquired absence of other specified parts of digestive tract; Z89.432 Acquired absence of left foot

== ENCOUNTER → 2022-07-19 | Outpatient (CLI) | payer OTHER ==
[~2022-07-19] MED LIST changes: +CHLORHEXIDINE473 M1 PO; +DEXAMETHASONE/NE5 M1 OPH; +NYST SUSP PO; +PAROXETINE10 MG PO
[2022-07-19 15:16] LABS: BASO % 0.6 % (0.0-1.0); EOS # 0.1 10*3/uL (0.0-0.4); EOS % 1.5 % (1.0-4.0); HEMATOCRIT 33.8 % (37.0-47.0); LYMPH # 1.9 10*3/uL (1.3-4.4); LYMPH % 26.3 % (27.0-41.0); MEAN CELL VOLUME 89.9 fl (81.0-99.0); MEAN CORPUSCULAR HGB 29.3 pg (27.0-31.0); MEAN CORPUSCULAR HGB CONC 32.5 g/dl (33.0-37.0); MEAN PLATELET VOLUME 11.2 fl (9.6-12.3); MONO # 0.6 10*3/uL (0.1-1.0); MONO % 8.1 % (3.0-9.0); NEUT # 4.5 10*3/uL (2.3-7.9); NEUT % 62.9 % (47.0-73.0); PLATELET COUNT AUTOMATED 174 10*3/uL (130-400); RED BLOOD COUNT 3.76 10*6/uL (4.10-5.10); RED CELL DISTRI WIDTH 13.9 % (0-14.5); WHITE BLOOD COUNT 7.1 10*3/uL (4.8-10.8)
[2022-07-19 15:41] LABS: CREATININE 1.28 mg/dL (0.55-1.02); POTASSIUM 4.4 mmol/L (3.5-5.1); TOTAL PROTEIN 6.7 gm/dL (6.4-8.2)
== END ==
LOC: LAB 14:41
PROVIDERS: ATTEND Internal Medicine Infectious Disease
DX: N39.0 Urinary tract infection, site not specified (principal)

== ENCOUNTER → 2022-12-27 | Outpatient (CLI) | payer OTHER ==
[2022-12-27 11:07] LABS: ACT PARTIAL THROMBO TIME 30.5 SECONDS (20.0-32.1); INTERNATIONAL NORM RATIO 1.1 (2.0-3.5)
== END | disposition home or self-care (01) ==
LOC: US 01:13
PROVIDERS: ATTEND Physician Assistant
DX: E04.1 Nontoxic single thyroid nodule (principal); I10 Essential (primary) hypertension; E11.9 Type 2 diabetes mellitus without complications; F41.9 Anxiety disorder, unspecified; E66.9 Obesity, unspecified; G50.0 Trigeminal neuralgia; E78.00 Pure hypercholesterolemia, unspecified; L98.9 Disorder of the skin and subcutaneous tissue, unspecified; K92.1 Melena; Z79.01 Long term (current) use of anticoagulants; Z68.35 Body mass index [BMI] 35.0-35.9, adult

== ENCOUNTER → 2023-04-26 | Outpatient (CLI) | payer OTHER | END | disposition home or self-care (01) | LOC: MRI 01:39 | PROVIDERS: ATTEND Physician Assistant | DX: M51.27 Other intervertebral disc displacement, lumbosacral region (principal); M48.061 Spinal stenosis, lumbar region without neurogenic claudication; C43.9 Malignant melanoma of skin, unspecified ==

== ENCOUNTER → 2023-05-02 | Outpatient (CLI) | payer OTHER | END | disposition home or self-care (01) | LOC: RAD 15:54 | PROVIDERS: ATTEND Physician Assistant | DX: Z01.818 Encounter for other preprocedural examination (principal); C43.30 Malignant melanoma of unspecified part of face ==

== ENCOUNTER → 2023-08-14 | Outpatient (CLI) | payer OTHER ==
[~2023-08-14] MED LIST changes: +CARBAMAZEPINE100 MG PO; +CARBAMAZEPINE200 MG PO; +CETIRIZINE10 MG PO; +GABAPENTIN100 M2 PO
[2023-08-14 11:55] LABS: HEMATOCRIT 34.6 % (37.0-47.0); MEAN CELL VOLUME 86.3 fl (81.0-99.0); MEAN CORPUSCULAR HGB 30.7 pg (27.0-31.0); MEAN CORPUSCULAR HGB CONC 35.5 g/dl (33.0-37.0); MEAN PLATELET VOLUME 9.6 fl (9.6-12.3); RED BLOOD COUNT 4.01 10*6/uL (4.10-5.10); RED CELL DISTRI WIDTH 13.2 % (0-14.5); WHITE BLOOD COUNT 6.6 10*3/uL (4.8-10.8)
[2023-08-14 12:17] LABS: ALKALINE PHOSPHATASE 280 U/L (46-116); BUN 15 mg/dl (9-23); CHLORIDE 98 mmol/L (98-107); POTASSIUM 5.1 mmol/L (3.4-5.1); SGPT/ALT 20 U/L (5-49); TOTAL PROTEIN 6.9 gm/dL (6.0-8.0)
== END | disposition home or self-care (01) ==
LOC: LAB 11:33
PROVIDERS: ATTEND Physician Assistant
DX: C43.9 Malignant melanoma of skin, unspecified (principal); G50.0 Trigeminal neuralgia; I10 Essential (primary) hypertension

== ENCOUNTER 2023-09-25 09:05 | Emergency (ER) | payer OTHER ==
[~2023-09-25] VITALS: Ht 152.4 cm; Wt 79.4 kg
[2023-09-25 10:01] LABS: BASO # 0.1 10*3/uL (0.0-0.1); EOS # 0.1 10*3/uL (0.0-0.4); EOS % 1.4 % (1.0-4.0); HEMATOCRIT 34.9 % (37.0-47.0); LYMPH # 1.4 10*3/uL (1.3-4.4); LYMPH % 26.9 % (27.0-41.0); MEAN CELL VOLUME 86.4 fl (81.0-99.0); MEAN CORPUSCULAR HGB CONC 33.5 g/dl (33.0-37.0); MEAN PLATELET VOLUME 9.3 fl (9.6-12.3); MONO # 0.4 10*3/uL (0.1-1.0); MONO % 7.7 % (3.0-9.0); NEUT # 3.2 10*3/uL (2.3-7.9); NEUT % 62.6 % (47.0-73.0); PLATELET COUNT AUTOMATED 261 10*3/uL (130-400); RED BLOOD COUNT 4.04 10*6/uL (4.10-5.10); RED CELL DISTRI WIDTH 12.1 % (0-14.5); WHITE BLOOD COUNT 5.1 10*3/uL (4.8-10.8)
[2023-09-25 10:14] LABS: ACT PARTIAL THROMBO TIME 31.5 SECONDS (20.0-32.1)
[2023-09-25 10:22] LABS: ALKALINE PHOSPHATASE 233 U/L (46-116); BUN 9 mg/dl (9-23); CHLORIDE 97 mmol/L (98-107); LIPASE 29 U/L (12-53); POTASSIUM 3.8 mmol/L (3.4-5.1); SGPT/ALT 21 U/L (5-49); TOTAL PROTEIN 6.9 gm/dL (6.0-8.0)
[2023-09-25 11:20] LABS: BILIRUBIN Negative (Negative); BLOOD Negative (Negative); CLARITY Clear (Clear); COLOR Yellow (Yellow); GLUCOSE Negative (Negative); KETONE Negative (Negative); LEUKO ESTERASE Negative (Negative); NITRITE Negative (Negative); PH 7.5 (4.5-8.0); SPECIFIC GRAVITY 1.015 (1.001-1.030); UROBILINOGEN 0.2 E.U./dl (0.0-1.0)
[2023-09-25 11:30] LABS: BACTERIA 1+
[2023-09-25] MEDS ORDERED: AMOX-CLAV 875-1 EACH PO (12:22)
[2023-09-25] MEDS ORDERED: HYDROCODONE-AC1 EAC1 PO (12:55)
== END 2023-09-25 12:31 | disposition home or self-care (01) ==
LOC: ED 09:05
PROVIDERS: Emergency Medicine
DX: K57.32 Diverticulitis of large intestine without perforation or abscess without bleeding (principal); E11.40 Type 2 diabetes mellitus with diabetic neuropathy, unspecified; Z79.4 Long term (current) use of insulin; I10 Essential (primary) hypertension; F32.A Depression, unspecified; Z87.442 Personal history of urinary calculi; Z88.1 Allergy status to other antibiotic agents; Z88.8 Allergy status to other drugs, medicaments and biological substances; Z90.49 Acquired absence of other specified parts of digestive tract; Z90.89 Acquired absence of other organs; Z98.890 Other specified postprocedural states

== ENCOUNTER → 2023-10-30 | Outpatient (CLI) | payer OTHER ==
[~2023-10-30] MED LIST changes: +AMOX-CLAV 875-1 EACH PO
== END | disposition home or self-care (01) ==
LOC: CT 10-18 13:00
PROVIDERS: ATTEND Physician Assistant
DX: K57.30 Diverticulosis of large intestine without perforation or abscess without bleeding (principal); K63.9 Disease of intestine, unspecified; R35.0 Frequency of micturition; Z90.49 Acquired absence of other specified parts of digestive tract

== ENCOUNTER → 2023-11-10 | Outpatient (CLI) | payer OTHER | END | disposition home or self-care (01) | LOC: RAD 15:19 | PROVIDERS: ATTEND Physician Assistant | DX: M16.12 Unilateral primary osteoarthritis, left hip (principal); M17.12 Unilateral primary osteoarthritis, left knee; M43.16 Spondylolisthesis, lumbar region ==

== ENCOUNTER → 2023-11-17 | Outpatient (CLI) | payer OTHER ==
[2023-11-17 12:17] LABS: ALKALINE PHOSPHATASE 229 U/L (46-116); BUN 26 mg/dl (9-23); CHLORIDE 95 mmol/L (98-107); POTASSIUM 4.8 mmol/L (3.4-5.1); SGPT/ALT 22 U/L (5-49); TOTAL PROTEIN 7.1 gm/dL (6.0-8.0)
== END | disposition home or self-care (01) ==
LOC: LAB 11:16
PROVIDERS: ATTEND Physician Assistant
DX: C43.9 Malignant melanoma of skin, unspecified (principal)

== ENCOUNTER → 2023-12-15 | Outpatient (CLI) | payer OTHER ==
[2023-12-15 14:33] LABS: BUN 19 mg/dl (9-23); CHLORIDE 108 mmol/L (98-107); POTASSIUM 4.4 mmol/L (3.4-5.1)
== END | disposition home or self-care (01) ==
LOC: LAB 13:46
PROVIDERS: ATTEND Internal Medicine
DX: N18.9 Chronic kidney disease, unspecified (principal)

== ENCOUNTER → 2023-12-22 | Outpatient (CLI) | payer OTHER ==
[2023-12-22 15:00] LABS: HEMATOCRIT 35.9 % (37.0-47.0)
[2023-12-22 15:47] LABS: POTASSIUM 4.5 mmol/L (3.4-5.1)
[2023-12-22 15:50] LABS: VITAMIN D, 25-HYDROXY 57.2 ng/mL (30-100)
[2023-12-22 16:31] LABS: BILIRUBIN Negative (Negative); BLOOD Negative (Negative); CLARITY Clear (Clear); COLOR Yellow (Yellow); GLUCOSE Negative (Negative); KETONE Negative (Negative); LEUKO ESTERASE 2+ (Negative); NITRITE Negative (Negative); PH 6.5 (4.5-8.0); UROBILINOGEN 0.2 E.U./dl (0.0-1.0)
[2023-12-22 16:38] LABS: BACTERIA 1+
[2023-12-22 16:39] LABS: WBC 31-40 wbc/hpf (0-5)
[2023-12-22 16:40] LABS: URINE CREATININE RANDOM 23.88 mg/dL
== END | disposition home or self-care (01) ==
LOC: LAB 14:32
PROVIDERS: ATTEND Internal Medicine
DX: I12.9 Hypertensive chronic kidney disease with stage 1 through stage 4 chronic kidney disease, or unspecified chronic kidney disease (principal); N18.9 Chronic kidney disease, unspecified; D63.1 Anemia in chronic kidney disease; E55.9 Vitamin D deficiency, unspecified; N25.81 Secondary hyperparathyroidism of renal origin

== ENCOUNTER → 2024-01-18 | Outpatient (CLI) | payer OTHER ==
[2024-01-18 13:21] LABS: HEMATOCRIT 35.2 % (37.0-47.0)
[2024-01-18 13:25] LABS: BILIRUBIN Negative (Negative); BLOOD Negative (Negative); CLARITY Clear (Clear); COLOR Yellow (Yellow); GLUCOSE Negative (Negative); KETONE Negative (Negative); LEUKO ESTERASE Trace (Negative); NITRITE Negative (Negative); PH 5.5 (4.5-8.0); SPECIFIC GRAVITY 1.015 (1.001-1.030); UROBILINOGEN 0.2 E.U./dl (0.0-1.0)
[2024-01-18 13:35] LABS: URINE CREATININE RANDOM 46.26 mg/dL
[2024-01-18 13:39] LABS: BACTERIA TRACE; WBC 16-20 wbc/hpf (0-5)
[2024-01-18 13:46] LABS: BUN 23 mg/dl (9-23); CHLORIDE 104 mmol/L (98-107); POTASSIUM 4.3 mmol/L (3.4-5.1)
[2024-01-18 15:22] LABS: VITAMIN D, 25-HYDROXY 56.8 ng/mL (30-100)
== END | disposition home or self-care (01) ==
LOC: LAB 12:49
PROVIDERS: ATTEND Internal Medicine
DX: I12.9 Hypertensive chronic kidney disease with stage 1 through stage 4 chronic kidney disease, or unspecified chronic kidney disease (principal); N18.9 Chronic kidney disease, unspecified; E55.9 Vitamin D deficiency, unspecified; N25.81 Secondary hyperparathyroidism of renal origin; D63.1 Anemia in chronic kidney disease; D64.9 Anemia, unspecified

== ENCOUNTER → 2024-04-11 | Outpatient (CLI) | payer OTHER | END | disposition home or self-care (01) | LOC: MAMMO 04-01 14:00 | PROVIDERS: ATTEND Physician Assistant | DX: Z12.31 Encounter for screening mammogram for malignant neoplasm of breast (principal); N63.11 Unspecified lump in the right breast, upper outer quadrant ==

== ENCOUNTER → 2024-11-21 | Outpatient (CLI) | payer MEDICARE ==
[2024-11-21 15:22] LABS: POTASSIUM 4.4 mmol/L (3.4-5.1)
== END | disposition home or self-care (01) ==
LOC: LAB 14:42
PROVIDERS: ATTEND Internal Medicine Cardiovascular Disease
DX: I10 Essential (primary) hypertension (principal)

== ENCOUNTER → 2025-02-04 | Outpatient (CLI) | payer MEDICARE ==
[2025-02-04 15:44] LABS: BILIRUBIN Negative (Negative); BLOOD Negative (Negative); CLARITY Cloudy (Clear); COLOR Yellow (Yellow); GLUCOSE Negative (Negative); KETONE Negative (Negative); LEUKO ESTERASE Trace (Negative); NITRITE Negative (Negative); PH 5.5 (4.5-8.0); UROBILINOGEN 0.2 E.U./dl (0.0-1.0)
[2025-02-04 15:44] LABS: HEMATOCRIT 37.5 % (37.0-47.0)
[2025-02-04 16:11] LABS: BUN 27 mg/dl (9-23); CHLORIDE 99 mmol/L (98-107); POTASSIUM 3.7 mmol/L (3.4-5.1)
[2025-02-04 16:24] LABS: VITAMIN D, 25-HYDROXY 56.8 ng/mL (30-100)
== END | disposition home or self-care (01) ==
LOC: LAB 15:01
PROVIDERS: ATTEND Internal Medicine
DX: I12.9 Hypertensive chronic kidney disease with stage 1 through stage 4 chronic kidney disease, or unspecified chronic kidney disease (principal); N18.9 Chronic kidney disease, unspecified; D63.1 Anemia in chronic kidney disease; E55.9 Vitamin D deficiency, unspecified; N25.81 Secondary hyperparathyroidism of renal origin

== ENCOUNTER → 2025-07-30 | Outpatient (CLI) | payer MEDICARE ==
[~2025-07-30] MED LIST changes: +DEXAMETHASONE/TO5 ML; +KLONOPIN1 M1 PO; +LOSARTAN POTASS50 M1; +Ondansetron4 MG PO
== END | disposition home or self-care (01) ==
LOC: CARD 07-21 11:30
PROVIDERS: ATTEND Internal Medicine Cardiovascular Disease
DX: Z01.810 Encounter for preprocedural cardiovascular examination (principal); R00.2 Palpitations

== ENCOUNTER → 2025-08-12 | Outpatient (CLI) | payer MEDICARE ==
[2025-08-12 17:00] LABS: BUN 22.0 mg/dl (9-23)
[2025-08-12 17:03] LABS: VITAMIN D, 25-HYDROXY 43.7 ng/mL (30-100)
== END | disposition home or self-care (01) ==
LOC: LAB 15:59
PROVIDERS: ATTEND Internal Medicine
DX: N20.0 Calculus of kidney (principal); N18.30 Chronic kidney disease, stage 3 unspecified; N25.81 Secondary hyperparathyroidism of renal origin; I12.9 Hypertensive chronic kidney disease with stage 1 through stage 4 chronic kidney disease, or unspecified chronic kidney disease

== ENCOUNTER → 2025-08-26 | Outpatient (CLI) | payer MEDICARE | END | disposition home or self-care (01) | LOC: US 14:40 | PROVIDERS: ATTEND Orthopaedic Surgery | DX: N85.8 Other specified noninflammatory disorders of uterus (principal); R93.89 Abnormal findings on diagnostic imaging of other specified body structures ==